=== PATIENT | female | born 1970 | race Caucasian/White ===

== ENCOUNTER 2024-05-28 11:09 | Emergency (ER) | payer BC, SELFPAY ==
[2024-05-28 11:13] VITALS: BP 100/77
--- NOTE | 2024-05-28 14:40 | ED.GENMED ---
History of Present Illness
General
Chief Complaint: Musculo-Skeletal Complaint
Source: patient
Exam Limitations: none
Time Seen by Provider: 05/28/24 12:56
Nursing documentation reviewed up to this point in time: agreed with
History of Present Illness
History of Present Illness:
53 y/o F with right groin pain/hip pain that started 2 days ago
[place] had [place] issues, drove [place] from [place] and during the night developed pain in her Right hip and groin
she says the pain feels like a burning and wraps around from the side to the groin and top of the thigh
no swelling, redness, skin changes, cold foot, foot drop, weakness, back pain, fever, urinary symptoms
pt had a kidney transplant 2 years ago and is immunosuppressed;
she previously did peritoneal dilaysis
(IgA nephropathy)
Past History
Past History
ED Past Medical History: Renal failure
Social History
Tobacco: Non-smoker
Review of Systems
Review of Systems
Allergies reviewed?: Yes
All Other Systems: Not applicable
Phy Exam
Physical Exam
Physical Exam:
GENERAL: Alert , in no apparent distress, comfortable at rest
HEAD: NCAT
NECK: no midline tenderness, active ROM intact, no paraspinal muscle tenderness;
CARDIAC: Regular rate and rhythm, no edema
LUNGS: Clear breath sounds bilaterally, no acute respiratory distress, no wheezes/rales/rhonchi
ABDOMEN: Soft, without focal tenderness, no r/g, no cvat, normal bowel sounds, nondistended
NEUROLOGICAL: Alert and oriented, no focal neuro deficits, CN intact, 5/5 strength, sensation intact, ambulation slight limp right leg
SKIN: Warm and dry, no bruising
MUSCULOSKELETAL: No edema, well perfused.
Back: No midline tenderness, mild dextroscoliosis, slight left paraspinal muscle tenderness on exam, no swelling
negative straight leg raise Bilaterally
PSYCH: Normal and appropriate interaction.
Course
Orders/Labs/Results
Orders:
Orders
05/28/24 13:24
Hip, Right 2-3 Views [CR Hip - RT w/wo Pel 2-3 Vw*] Urgent
Comment:
Reason For Exam: right hip pain, no trauma
Include a pelvis x-ray?: Yes
Venous Doppler Lwr Ext Rt [US Periph Venous LOWER Ext RT] Urgent
Comment:
Reason For Exam: right leg pain,kidney txp
Vital Signs
Initial and Last Documented VS:
Initial Vital Signs
Temp Pulse Resp BP Pulse Ox
98.0 F 105 16 100/77 98
05/28/24 11:13 05/28/24 11:13 05/28/24 11:13 05/28/24 11:13 05/28/24 11:13
Last Documented Vital Signs
Temp Pulse Resp BP Pulse Ox
98.9 F 78 16 158/97 96
05/28/24 15:24 05/28/24 15:24 05/28/24 11:13 05/28/24 15:24 05/28/24 15:24
ED Attending Note
-
Portions of this chart may have been created with voice recognition software.� Occasional wrong word or��sound alike� substitutions may have occurred due to the inherent limitations of voice recognition software.
Discharge Plan
Departure
Patient Disposition: Home (Routine Discharge)
Date of Disposition: 05/28/24
Time of Disposition: 15:19
Patient with high blood pressure during this ER visit?: No
Condition: Fair
Covid-19: Not Applicable
Discharge Problem:
Calcific tendinitis of hip
Instructions: Tendinopathy (DC)
Prescriptions:
New
oxycodone 5 mg tablet
5 mg PO Q8H PRN (Reason: Pain) Qty: 10 0RF
No Action
B complex-vitamin C-folic acid [Juana-Elsie] 0.8 MG tablet
0.8 mg PO DAILY
escitalopram oxalate 10 MG tablet
10 mg PO DAILY
sucroferric oxyhydroxide [Velphoro] 500 MG tablet,chewable
1,000 mg PO AC
Patient Comments:
Chew and swallow 2 tabs with meals, and 1 tab with snacks - total 8 tabs per day
guaifenesin [Mucus Relief ER] 600 MG tablet extended release 12hr
600 mg PO Q12 0RF
Referrals:
Duke Das MD [Active] - Follow up in 5-7 days
Faye Dwyer MD [Family Provider] -
Activity Restrictions/Additional Instructions:
YOUR HIP PAIN IS LIKELY DUE TO CALCIFIC TENDINITIS
THIS IS AN INFLAMMATION OF THE TENDON PROBABLY DUE TO STRAIN/INJURY WITH CALCIUM DEPOSITS THAT BECOME PAINFUL
UNFORTUNATELY NSAIDS ARE THE BEST TREATMENT BUT YOU CANNOT TAKE THEM DUE TO YOUR KIDNEY TRANSPLANT
TAKE TYLENOL 3 TIMES A DAY 1000 MG
FOR MORE SEVRE PAIN YOU CAN USE OXYCODONE 5 MG SPARINGLY, MAYBE AT NIGHT NEEDED
USE THE CANE TO HELP YOU WALK
YOU MAYNEED PHSYCIAL THERAPY
FOLLOW UP WITH ORTHOPEDICS
REUTNR FOR: FEVER, WEAKNESS, NUMBNESS, COLOR CHANGE TO LEG, SKIN CHANGES, INABILITY TO WALK OR NAY CONCERNS,
IF YOU USE THE OXYCODONE USE A STOOL SOFTENER TO PREVENT CONSTIPATION
Interventions
Interventions:
*Nursing Disposition Last Done: 05/28/24 15:48
Discharge Date and Time
Discharge Date/Time: 05/28/24 15:49
Print Language: MACEDONIAN
[2024-05-28 14:56] LABS: Glucose - Point of Care 90 mg/dl (70-99)
[2024-05-28 15:24] VITALS: BP 158/97
== END 2024-05-28 15:49 | disposition home or self-care (01) ==
LOC: EMR 11:09
PROVIDERS: EMERGENCY PHYSICIAN Student in an Organized Health Care Education/Training Program; FAMILY PHYSICIAN Family Medicine
DX: M65.28 Calcific tendinitis, other site (principal)
CPT/HCPCS: 99284; 73502; 82962; 93971